=== PATIENT | male | born 1995 | race Caucasian/White ===

== ENCOUNTER 2023-08-08 20:48 | Inpatient (IN) | payer OTHER ==
[~2023-08-08] VITALS: Ht 172.7 cm; Wt 68.7 kg
[2023-08-08 21:24] LABS: BASOPHILS % 0.1 % (0.0-2.0); EOSINOPHILS % 2.8 % (0.0-5.0); HEMATOCRIT. 41.8 % (42.0-52.0); HEMOGLOBIN. 14.3 g/dL (14.0-18.0); LYMPHOCYTES % 11.3 % (20.0-50.0); MEAN CORPUSCULAR HEMOGLOBIN 28.6 pg (28.0-32.0); MEAN CORPUSCULAR HGB CONC 34.2 g/dL (31.0-37.0); MEAN CORPUSCULAR VOLUME 83.8 fL (80.0-94.0); MEAN PLATELET VOLUME 7.8 fl (7.4-10.4); MONOCYTES % 8.1 % (2.0-8.0); NEUTROPHILS % 77.7 % (40.0-76.0); PLATELET 284 x1000/uL (130-400); RED CELL DISTRIBUTION WIDTH 12.6 % (11.6-14.6); WHITE BLOOD COUNT 12.5 x1000/uL (4.5-11.0)
[2023-08-08 21:27] LABS: CLARITY URINE CLEAR (CLEAR); COLOR URINE YELLOW (YELLOW); GLUCOSE URINE NEGATIVE (NEGATIVE); KETONES URINE 1+ (NEGATIVE); LEUKOCYTE ESTERASE URINE NEGATIVE (NEGATIVE); NITRITE URINE NEGATIVE (NEGATIVE); OCCULT BLOOD URINE NEGATIVE (NEGATIVE); PROTEIN URINE 1+ (NEGATIVE); SPECIFIC GRAVITY URINE 1.029 (1.005-1.030)
[2023-08-08 21:31] LABS: RBC URINE NONE SEEN /hpf (0-2); YEAST URINE NONE SEEN
[2023-08-08 21:32] LABS: INR 1.1; PARTIAL THROMBOPLASTIN TIME 30.8 sec (23.4-31.0); PROTHROMBIN TIME 11.7 sec (9.6-11.0)
[2023-08-08 21:34] LABS: CHLORIDE 103 mEq/L (98-107); INDEX HEMOLYSI 1 (1-3); INDEX ICTERIC 1 (1-4); INDEX LIPEMIC 1 (1-3); POTASSIUM 3.4 mEq/L (3.5-5.1); SODIUM 136 mEq/L (136-145)
[2023-08-08 21:44] LABS: ALANINE AMINOTRANSFERASE 17 IU/L (13-61); ALBUMIN 3.3 g/dL (3.4-5.0); ASPARTATE AMINOTRANSFERASE 14 IU/L (15-37); BILIRUBIN TOTAL 0.6 mg/dL (0.1-1.0); CALCIUM 8.8 mg/dL (8.5-10.1); CARBON DIOXIDE 27 mEq/L (21-32); GLUCOSE 114 mg/dL (70-105); PROTEIN TOTAL 7.8 g/dL (6.0-8.3); UREA NITROGEN BLOOD 12 mg/dL (7-21)
[2023-08-08] MEDS ORDERED: IBUPROFEN 400MG TABLET PO ONE (21:45)
[2023-08-08] MEDS ORDERED: CEFTRIAXONE 1GM PREMIX 50 ML IV ONE (21:45)
[2023-08-08] MEDS ORDERED: AZITHROMYCIN 500MG/250ML 250 ML IV ONE (21:45)
[2023-08-08] MEDS ORDERED: SODIUM CHLORIDE 0.9% 1000ML BAG (SEPSIS BOLUS) IV ONE (21:45)
[2023-08-08 21:47] LABS: TROPONIN I HIGH SENSITIVITY 7 ng/L (<78)
[2023-08-08 21:53] LABS: BACTERIA URINE 1+; SQUAMOUS EPITHELIAL CELL URINE RARE /lpf (RARE/1+); WBC URINE 0-2 /hpf (0-2)
[2023-08-09] VITALS (7 sets, daily range): BP systolic 111–128; BP diastolic 61–77; PULSE 68–98; RESP 16–20; TEMP 97.5–100.9; O2SAT 97
[2023-08-09] MEDS ORDERED: IOHEXOL-350 100 ML BOTTLE ONE (05:46)
[2023-08-09] MEDS ORDERED: IBUP-2029 MT (10:37)
[2023-08-09] MEDS ORDERED: AMOX-494 MT (10:37)
[2023-08-09] MEDS ORDERED: ACET-2708 MT (10:37)
[2023-08-09] MEDS ORDERED: BENZ200C52 MT (10:37)
[2023-08-09] MEDS ORDERED: AZIT250T12 MT (10:40)
[2023-08-09] MEDS ORDERED: MORPHINE SULFATE 2 MG/ML CPJ (NOT FOR IM USE) IV SCH (10:45)
[2023-08-09 10:47] LABS: BASOPHILS % 0.2 % (0.0-2.0); EOSINOPHILS % 2.4 % (0.0-5.0); HEMATOCRIT. 39.8 % (42.0-52.0); HEMOGLOBIN. 13.8 g/dL (14.0-18.0); LYMPHOCYTES % 16.8 % (20.0-50.0); MEAN CORPUSCULAR HEMOGLOBIN 29.4 pg (28.0-32.0); MEAN CORPUSCULAR HGB CONC 34.6 g/dL (31.0-37.0); MEAN CORPUSCULAR VOLUME 84.7 fL (80.0-94.0); MEAN PLATELET VOLUME 7.8 fl (7.4-10.4); MONOCYTES % 9.9 % (2.0-8.0); NEUTROPHILS % 70.7 % (40.0-76.0); PLATELET 257 x1000/uL (130-400); RED BLOOD CELL COUNT 4.69 mill/uL (4.7-6.1); RED CELL DISTRIBUTION WIDTH 12.3 % (11.6-14.6); WHITE BLOOD COUNT 10.8 x1000/uL (4.5-11.0)
[2023-08-09 11:07] LABS: CHLORIDE 103 mEq/L (98-107); INDEX HEMOLYSI 1 (1-3); INDEX ICTERIC 1 (1-4); INDEX LIPEMIC 1 (1-3); POTASSIUM 3.6 mEq/L (3.5-5.1); SODIUM 136 mEq/L (136-145)
[2023-08-09] MEDS ORDERED: DOCUSATE SODIUM 100MG CAPSULE PO PRN (11:15)
[2023-08-09] MEDS ORDERED: IPRATROPIUM/ALBUTEROL 0.5-3(2.5)MG/3ML NEB HHN PRN (11:15)
[2023-08-09] MEDS ORDERED: CLONIDINE 0.1MG TABLET PO PRN (11:15)
[2023-08-09] MEDS ORDERED: METHYLPREDNISOLONE SOD SUCC 40MG/ML (ACT-O-VIAL) IV SCH (11:15)
[2023-08-09] MEDS ORDERED: ACETAMINOPHEN 325MG TABLET PO PRN (11:15)
[2023-08-09 11:17] LABS: ALANINE AMINOTRANSFERASE 16 IU/L (13-61); ALBUMIN 3.1 g/dL (3.4-5.0); ASPARTATE AMINOTRANSFERASE 12 IU/L (15-37); BILIRUBIN TOTAL 0.9 mg/dL (0.1-1.0); CALCIUM 9.2 mg/dL (8.5-10.1); CARBON DIOXIDE 30 mEq/L (21-32); CREATININE 1.1 mg/dL (0.6-1.3); GLUCOSE 107 mg/dL (70-105); PROTEIN TOTAL 7.1 g/dL (6.0-8.3); UREA NITROGEN BLOOD 8 mg/dL (7-21)
[2023-08-09 11:53] LABS: BG BASE EXCESS 2.4 mmol/L (-2.0-2.0); BG CARBOXYHEMOGLOBIN 0.2 % (0.5-1.5); BG DEOXYHEMOGLOBIN 3.4 % (0.0-5.0); BG HCO3 ACT 25.8 mmol/L (22.0-26.0); BG METHEMOGLOBIN 0.3 % (0.0-1.5); BG OXYGEN SATURATION 96.6 % (92.0-98.5); BG OXYHEMOGLOBIN 96.1 % (94.0-97.0); BG PCO2 36.5 mmHg (35.0-45.0); BG PH 7.468 (7.350-7.450); BG PO2 83.9 mmHg (75.0-100.0); BG SAMPLE SITE RIGHT RADIAL; BG VENT MODE ROOM AIR
[2023-08-09] MEDS ORDERED: CEFTRIAXONE 2GM/50ML (ADDEASE) 50 ML IV SCH (12:30)
[2023-08-09] MEDS: DILTIAZEM HCL 30MG TABLET PO SCH ×2 (14:09→21:31)
[2023-08-09] MEDS: CEFTRIAXONE 2 G in DEXTROSE 5% WATER 50 ML IV SCH (14:10)
[2023-08-09] MEDS: AZITHROMYCIN 500 MG in DEXT 5% WATER 250 ML IV SCH (14:10)
[2023-08-09] MEDS: ACETAMINOPHEN 325MG TABLET PO PRN (14:14)
[2023-08-09] MEDS: IPRATROPIUM/ALBUTEROL 0.5-3(2.5)MG/3ML NEB HHN SCH ×2 (17:13→21:55)
[2023-08-09 18:54] LABS: *AMPHETAMINES SCREEN URINE NEGATIVE (NEGATIVE); *BARBITURATES SCREEN URINE NEGATIVE (NEGATIVE); *BENZODIAZEPINES SCREEN URINE NEGATIVE (NEGATIVE); *COCAINE SCREEN URINE NEGATIVE (NEGATIVE); CANNABINOID URINE SCREEN PRESUMTIVE POSITIVE (NEGATIVE); ECSTASY MDMA SCREEN URINE NEGATIVE (NEGATIVE); OPIATES URINE SCREEN PRESUMTIVE POSITIVE (NEGATIVE); PHENCYCLIDINE URINE SCREEN NEGATIVE (NEGATIVE)
[2023-08-09 19:32] LABS: METHADONE URINE SCREEN INVALID (NEGATIVE)
[2023-08-09 21:27] LABS: INDEX HEMOLYSI 1 (1-3)
[2023-08-09 21:35] LABS: CREATINE KINASE 31 IU/L (39-308); CREATINE KINASE MB FRACTION < 1.0 ng/mL (0.5-3.6); TROPONIN I HIGH SENSITIVITY 77 ng/L (<78)
[2023-08-10] VITALS (12 sets, daily range): BP systolic 110–124; BP diastolic 60–71; PULSE 76–98; RESP 16–20; TEMP 98.6–99.2
[2023-08-10] MEDS: IPRATROPIUM/ALBUTEROL 0.5-3(2.5)MG/3ML NEB HHN SCH ×5 (01:25→23:50)
[2023-08-10] MEDS: DILTIAZEM HCL 30MG TABLET PO SCH ×3 (05:41→21:04)
[2023-08-10] MEDS: ACETAMINOPHEN 325MG TABLET PO PRN ×2 (09:08→21:04)
[2023-08-10 09:49] LABS: INDEX HEMOLYSI 1 (1-3)
[2023-08-10 09:56] LABS: CREATINE KINASE 27 IU/L (39-308); CREATINE KINASE MB FRACTION < 1.0 ng/mL (0.5-3.6); TROPONIN I HIGH SENSITIVITY 45 ng/L (<78)
[2023-08-10] MEDS: AZITHROMYCIN 500 MG in DEXT 5% WATER 250 ML IV SCH (14:24)
[2023-08-10] MEDS: CEFTRIAXONE 2 G in DEXTROSE 5% WATER 50 ML IV SCH (14:24)
[2023-08-11] VITALS (11 sets, daily range): BP systolic 113–130; BP diastolic 65–82; PULSE 82–107; RESP 16–22; TEMP 97.7–99.4; O2SAT 95–97
[2023-08-11] MEDS: ACETAMINOPHEN 325MG TABLET PO PRN ×3 (03:43→21:20)
[2023-08-11] MEDS: IPRATROPIUM/ALBUTEROL 0.5-3(2.5)MG/3ML NEB HHN SCH ×5 (03:50→21:50)
[2023-08-11 05:09] LABS: HIV SCREEN 4G Non Reactive (Non Reactive)
[2023-08-11] MEDS: DILTIAZEM HCL 30MG TABLET PO SCH ×3 (05:31→21:17)
[2023-08-11] MEDS: CEFTRIAXONE 2 G in DEXTROSE 5% WATER 50 ML IV SCH (13:39)
[2023-08-11] MEDS: AZITHROMYCIN 500 MG in DEXT 5% WATER 250 ML IV SCH (13:39)
[2023-08-12] VITALS (10 sets, daily range): BP systolic 102–128; BP diastolic 62–81; PULSE 69–101; RESP 15–18; TEMP 98.3–99.3
[2023-08-12] MEDS: IPRATROPIUM/ALBUTEROL 0.5-3(2.5)MG/3ML NEB HHN SCH ×6 (01:25→22:00)
[2023-08-12] MEDS: ACETAMINOPHEN 325MG TABLET PO PRN ×3 (05:24→20:52)
[2023-08-12] MEDS: DILTIAZEM HCL 30MG TABLET PO SCH ×3 (05:25→20:52)
[2023-08-12] MEDS: TRAMADOL 50MG TABLET PO PRN ×2 (06:44→16:10)
[2023-08-12] MEDS ORDERED: LACTULOSE 20G/30ML UDC PO PRN (06:45)
[2023-08-12] MEDS ORDERED: LACTULOSE 20G/30ML UDC PO NR (06:45)
[2023-08-12] MEDS: AZITHROMYCIN 500 MG in DEXT 5% WATER 250 ML IV SCH (13:51)
[2023-08-12] MEDS: CEFTRIAXONE 2 G in DEXTROSE 5% WATER 50 ML IV SCH (13:51)
[2023-08-12] MEDS: ONDANSETRON HCL 4MG/2ML INJ IV PRN (15:42)
[2023-08-13] VITALS (10 sets, daily range): BP systolic 99–118; BP diastolic 63–79; PULSE 60–97; RESP 18–20; TEMP 97.2–98.6; O2SAT 97
[2023-08-13] MEDS: IPRATROPIUM/ALBUTEROL 0.5-3(2.5)MG/3ML NEB HHN SCH ×6 (01:00→21:18)
[2023-08-13] MEDS: DILTIAZEM HCL 30MG TABLET PO SCH ×3 (05:30→22:00)
[2023-08-13] MEDS: TRAMADOL 50MG TABLET PO PRN ×3 (05:33→18:43)
[2023-08-13 13:17] LABS: BASOPHILS % 0.3 % (0.0-2.0); EOSINOPHILS % 1.9 % (0.0-5.0); HEMATOCRIT. 43.8 % (42.0-52.0); HEMOGLOBIN. 14.8 g/dL (14.0-18.0); MEAN CORPUSCULAR HEMOGLOBIN 28.3 pg (28.0-32.0); MEAN CORPUSCULAR HGB CONC 33.7 g/dL (31.0-37.0); MEAN CORPUSCULAR VOLUME 83.9 fL (80.0-94.0); MONOCYTES % 8.9 % (2.0-8.0); NEUTROPHILS % 74.9 % (40.0-76.0); RED BLOOD CELL COUNT 5.22 mill/uL (4.7-6.1); RED CELL DISTRIBUTION WIDTH 12.2 % (11.6-14.6); WHITE BLOOD COUNT 10.4 x1000/uL (4.5-11.0)
[2023-08-13 13:30] LABS: DIFFERENTIAL COMMENT 1
[2023-08-13] MEDS: CEFTRIAXONE 2 G in DEXTROSE 5% WATER 50 ML IV SCH (13:30)
[2023-08-13 13:52] LABS: CHLORIDE 97 mEq/L (98-107); INDEX HEMOLYSI 1 (1-3); INDEX ICTERIC 1 (1-4); INDEX LIPEMIC 1 (1-3); POTASSIUM 4.2 mEq/L (3.5-5.1); SODIUM 131 mEq/L (136-145)
[2023-08-13 13:58] LABS: PLATELET 321 x1000/uL (130-400)
[2023-08-13 14:01] LABS: CALCIUM 9.4 mg/dL (8.5-10.1); CARBON DIOXIDE 26 mEq/L (21-32); CREATININE 1.1 mg/dL (0.6-1.3); GLUCOSE 90 mg/dL (70-105); UREA NITROGEN BLOOD 11 mg/dL (7-21)
[2023-08-14] VITALS (8 sets, daily range): BP systolic 105–114; BP diastolic 65–75; PULSE 88–109; RESP 18–20; TEMP 97.3–99.1; O2SAT 95–97
[2023-08-14] MEDS: ACETAMINOPHEN 325MG TABLET PO PRN (00:27)
[2023-08-14] MEDS: DILTIAZEM HCL 30MG TABLET PO SCH ×3 (06:00→22:36)
[2023-08-14 06:39] LABS: BASOPHILS % 0.4 % (0.0-2.0); EOSINOPHILS % 4.4 % (0.0-5.0); HEMATOCRIT. 42.2 % (42.0-52.0); HEMOGLOBIN. 14.4 g/dL (14.0-18.0); LYMPHOCYTES % 14.8 % (20.0-50.0); MEAN CORPUSCULAR HEMOGLOBIN 28.9 pg (28.0-32.0); MEAN CORPUSCULAR HGB CONC 34.2 g/dL (31.0-37.0); MEAN CORPUSCULAR VOLUME 84.3 fL (80.0-94.0); MEAN PLATELET VOLUME 7.7 fl (7.4-10.4); MONOCYTES % 11.2 % (2.0-8.0); NEUTROPHILS % 69.2 % (40.0-76.0); PLATELET 328 x1000/uL (130-400); RED CELL DISTRIBUTION WIDTH 12.3 % (11.6-14.6); WHITE BLOOD COUNT 8.7 x1000/uL (4.5-11.0)
[2023-08-14 08:42] LABS: CHLORIDE 96 mEq/L (98-107); INDEX HEMOLYSI 2 (1-3); INDEX ICTERIC 1 (1-4); INDEX LIPEMIC 1 (1-3); POTASSIUM 3.9 mEq/L (3.5-5.1); SODIUM 134 mEq/L (136-145)
[2023-08-14 08:49] LABS: CALCIUM 9.1 mg/dL (8.5-10.1); CARBON DIOXIDE 31 mEq/L (21-32); CREATININE 1.1 mg/dL (0.6-1.3); GLUCOSE 78 mg/dL (70-105); UREA NITROGEN BLOOD 12 mg/dL (7-21)
[2023-08-14] MEDS: TRAMADOL 50MG TABLET PO PRN ×2 (11:22→22:37)
[2023-08-14] MEDS ORDERED: MORPHINE SULFATE 2 MG/ML CPJ (NOT FOR IM USE) IV NR (12:45)
[2023-08-14] MEDS ORDERED: NALOXONE HCL 0.4MG/ML VIAL IV PRN (12:45)
[2023-08-14] MEDS: CEFTRIAXONE 2 G in DEXTROSE 5% WATER 50 ML IV SCH (13:09)
[2023-08-14] MEDS: IPRATROPIUM/ALBUTEROL 0.5-3(2.5)MG/3ML NEB HHN SCH ×2 (13:17→17:45)
[2023-08-15] VITALS (7 sets, daily range): BP systolic 106–124; BP diastolic 68–84; PULSE 80–100; RESP 16–20; TEMP 97.2–98.6
[2023-08-15] MEDS: HYDROCODONE/ACETAMINOPHEN 5/325MG TABLET PO PRN ×4 (05:29→21:59)
[2023-08-15] MEDS: DILTIAZEM HCL 30MG TABLET PO SCH ×3 (05:29→21:57)
[2023-08-15] MEDS ORDERED: IPRATROPIUM/ALBUTEROL 0.5-3(2.5)MG/3ML NEB ONE (09:55)
[2023-08-15] MEDS: IPRATROPIUM/ALBUTEROL 0.5-3(2.5)MG/3ML NEB HHN SCH (10:00)
[2023-08-15] MEDS: CEFTRIAXONE 2 G in DEXTROSE 5% WATER 50 ML IV SCH (15:33)
[2023-08-15] MEDS: ONDANSETRON HCL 4MG/2ML INJ IV PRN (15:47)
[2023-08-16] VITALS: BP 102/69; PULSE 84; RESP 18; TEMP 98.1
[2023-08-16 04:00] VITALS: BP 110/71; PULSE 88; RESP 18; TEMP 98
[2023-08-16] MEDS: HYDROCODONE/ACETAMINOPHEN 5/325MG TABLET PO PRN ×2 (05:44→19:53)
[2023-08-16] MEDS: DILTIAZEM HCL 30MG TABLET PO SCH ×3 (05:44→22:26)
[2023-08-16 08:00] VITALS: BP 113/70; PULSE 81; RESP 20; TEMP 97.6
[2023-08-16 10:58] LABS: BASOPHILS % 0.4 % (0.0-2.0); EOSINOPHILS % 4.5 % (0.0-5.0); HEMATOCRIT. 39.2 % (42.0-52.0); HEMOGLOBIN. 13.4 g/dL (14.0-18.0); LYMPHOCYTES % 18.1 % (20.0-50.0); MEAN CORPUSCULAR HEMOGLOBIN 28.4 pg (28.0-32.0); MEAN CORPUSCULAR HGB CONC 34.2 g/dL (31.0-37.0); MEAN CORPUSCULAR VOLUME 83.2 fL (80.0-94.0); MEAN PLATELET VOLUME 7.7 fl (7.4-10.4); MONOCYTES % 8.3 % (2.0-8.0); NEUTROPHILS % 68.7 % (40.0-76.0); PLATELET 344 x1000/uL (130-400); RED BLOOD CELL COUNT 4.72 mill/uL (4.7-6.1); RED CELL DISTRIBUTION WIDTH 11.9 % (11.6-14.6); WHITE BLOOD COUNT 7.8 x1000/uL (4.5-11.0)
[2023-08-16 12:00] VITALS: BP 101/70; PULSE 77; RESP 20; TEMP 97.8
[2023-08-16 12:15] LABS: CALCIUM 9.3 mg/dL (8.5-10.1); CHLORIDE 97 mEq/L (98-107); INDEX HEMOLYSI 1 (1-3); INDEX ICTERIC 1 (1-4); INDEX LIPEMIC 1 (1-3); POTASSIUM 4.1 mEq/L (3.5-5.1); SODIUM 133 mEq/L (136-145)
[2023-08-16 12:37] LABS: CREATININE 1.2 mg/dL (0.6-1.3); GLUCOSE 134 mg/dL (70-105); UREA NITROGEN BLOOD 14 mg/dL (7-21)
[2023-08-16 14:28] LABS: CARBON DIOXIDE 28 mEq/L (21-32)
[2023-08-16 16:00] VITALS: BP 119/69; PULSE 91; RESP 20; TEMP 98.2
[2023-08-16 19:50] VITALS: BP 113/69; PULSE 98; TEMP 97.6
[2023-08-17] VITALS: BP 105/66; PULSE 80; RESP 19; TEMP 98.8
[2023-08-17 04:00] VITALS: BP 109/68; PULSE 82; RESP 18; TEMP 99
[2023-08-17] MEDS: DILTIAZEM HCL 30MG TABLET PO SCH ×3 (05:40→21:54)
[2023-08-17 08:00] VITALS: BP 107/62; PULSE 65; RESP 18; TEMP 98.4
[2023-08-17 12:00] VITALS: BP 109/60; PULSE 92; RESP 18; TEMP 98
[2023-08-17 16:00] VITALS: BP 101/63; PULSE 94; RESP 18; TEMP 98.2
[2023-08-17 19:45] LABS: BASOPHILS % 0.4 % (0.0-2.0); EOSINOPHILS % 2.3 % (0.0-5.0); HEMATOCRIT. 38.3 % (42.0-52.0); HEMOGLOBIN. 13.5 g/dL (14.0-18.0); LYMPHOCYTES % 17.9 % (20.0-50.0); MEAN CORPUSCULAR HGB CONC 35.3 g/dL (31.0-37.0); MEAN CORPUSCULAR VOLUME 82.1 fL (80.0-94.0); MEAN PLATELET VOLUME 7.4 fl (7.4-10.4); MONOCYTES % 9.3 % (2.0-8.0); NEUTROPHILS % 70.1 % (40.0-76.0); PLATELET 385 x1000/uL (130-400); RED BLOOD CELL COUNT 4.66 mill/uL (4.7-6.1); RED CELL DISTRIBUTION WIDTH 12.1 % (11.6-14.6)
[2023-08-17 19:51] LABS: CALCIUM 9.1 mg/dL (8.5-10.1); CHLORIDE 99 mEq/L (98-107); INDEX HEMOLYSI 1 (1-3); INDEX ICTERIC 1 (1-4); INDEX LIPEMIC 1 (1-3); SODIUM 135 mEq/L (136-145)
[2023-08-17 19:55] LABS: CARBON DIOXIDE 30 mEq/L (21-32); GLUCOSE 95 mg/dL (70-105); UREA NITROGEN BLOOD 13 mg/dL (7-21)
[2023-08-17 20:00] VITALS: BP 113/77; PULSE 89; RESP 18; TEMP 98.3
[2023-08-18] VITALS: BP 113/74; PULSE 88; RESP 19; TEMP 98.7
[2023-08-18 04:00] VITALS: BP 108/69; PULSE 84; RESP 20; TEMP 99.2
[2023-08-18] MEDS: DILTIAZEM HCL 30MG TABLET PO SCH (06:00)
[2023-08-18 08:00] VITALS: BP 104/72; PULSE 89; RESP 18; TEMP 98.9
[2023-08-18 11:34] VITALS: BP 104/72; PULSE 89; TEMP 98.9; O2SAT 98
[2023-08-18 12:00] VITALS: BP 106/72; PULSE 82; RESP 18; TEMP 97.8
[2023-08-22 19:06] LABS: ANTI-MYELOPEROXIDASE AB < 0.2 units (0.0-0.9); ANTI-PROTEINASE 3 ABS < 0.2 units (0.0-0.9)
[2023-08-23 14:08] LABS: ATYPICAL P-ANCA <1:20 titer (Neg:<1:20); CYTOPLASMIC C-ANCA <1:20 titer (Neg:<1:20); PERINUCLEAR P-ANCA <1:20 titer (Neg:<1:20)
== END 2023-08-18 12:40 | disposition home or self-care (01) | DRG 720 ==
LOC: ER 20:48 → 7WST 08-09 05:30
PROVIDERS: ADMIT Internal Medicine; ATTEND Internal Medicine
DX: A41.9 Sepsis, unspecified organism (principal); J18.9 Pneumonia, unspecified organism; E88.09 Other disorders of plasma-protein metabolism, not elsewhere classified; E87.6 Hypokalemia; F15.90 Other stimulant use, unspecified, uncomplicated; Z20.822 Contact with and (suspected) exposure to COVID-19; R21 Rash and other nonspecific skin eruption; L53.9 Erythematous condition, unspecified; J98.8 Other specified respiratory disorders; Z79.899 Other long term (current) drug therapy; R19.7 Diarrhea, unspecified
CPT/HCPCS: 36415; 36600; 70486; 71045; 71275; 80048; 80053; 80305; 81003; 82375; 82550; 82553; 82805; 83520; 83605; 83880; 84145; 84484; 85025; 85379; 85651; 86256; 86480; 87116; 87389; 87426; 87804; 93005; 93306; 93970; 94640; 99285; C9803; J0456; J0696; J2270; J2405; J7030; J7060; Q9967